=== PATIENT | female | born 1940 | race Caucasian/White ===

== ENCOUNTER 2016-05-27 15:46 | Emergency (ER) | payer MEDICARE ==
[~2016-05-27] VITALS: Ht 152.4 cm; Wt 88.0 kg
[2016-05-27 15:53] VITALS: BP 142/72; PULSE 77; RESP 16; TEMP 97.9; O2SAT 98
[2016-06-15] MEDS ORDERED: VALA500T PO (10:02)
[2016-06-15] MEDS ORDERED: AMLO2.5T PO (10:02)
[2016-06-15] MEDS ORDERED: VITA100064 PO (10:02)
[2016-06-15] MEDS ORDERED: FLUT1SPR5 EACH NARE (10:02)
[2016-06-15] MEDS ORDERED: AMBI5TAB PO (10:02)
== END 2016-05-27 20:13 | disposition left against medical advice (07) ==
LOC: PHED 15:46
DX: R10.9 Unspecified abdominal pain (principal)
CPT/HCPCS: 99281

== ENCOUNTER 2016-06-01 09:33 | Emergency (ER) | payer MEDICARE ==
[~2016-06-01] VITALS: Ht 152.4 cm; Wt 79.5 kg
[2016-06-01 09:36] VITALS: BP 171/80; PULSE 74; RESP 16; TEMP 97.8; O2SAT 97
[2016-06-01 10:42] LABS: AUTOMATED NEUTROPHIL # 3.4 TH/MM3 (1.8-7.7); BASOPHIL % 0.4 % (0.0-2.0); EOSINOPHIL # 0.2 TH/MM3 (0-0.4); EOSINOPHIL % 3.6 % (0.0-4.0); HEMATOCRIT 46.5 % (35.0-46.0); LYMPH % 36.5 % (9.0-44.0); LYMPHOCYTE # 2.5 TH/MM3 (1.0-4.8); MEAN CELL VOLUME 95.7 FL (80.0-100.0); MEAN CORPUSCULAR HEMOGLOBIN 33.2 PG (27.0-34.0); MEAN CORPUSCULAR HGB CONC 34.7 % (32.0-36.0); MONO % 8.4 % (0.0-8.0); NEUT % 51.1 % (16.0-70.0); PLATELET COUNT 99 TH/MM3 (150-450); RED BLOOD COUNT 4.86 MIL/MM3 (4.00-5.30); RED CELL DISTRIBUTION WIDTH 12.4 % (11.6-17.2); WHITE BLOOD COUNT 6.7 TH/MM3 (4.0-11.0)
[2016-06-01 10:45] LABS: HEMO FLAGS AUTO DIFF
[2016-06-01 10:48] LABS: BLOOD, URINE NEG (NEG); COMMENT (UR) CULT NOT INDICATED; CULTURE IF INDICATED CULT NOT INDICATED; GLUCOSE,URINE NEG (NEG); KETONE, URINE NEG (NEG); NITRITE,URINE NEG (NEG); PH, URINE 7.5 (5.0-8.5); URINE COLOR YELLOW (YELLW/STRAW)
[2016-06-01 11:15] LABS: PLATELET ESTIMATE SMEAR LOW (NORMAL); PLATELET MORPHOLOGY NORMAL (NORMAL); SCAN/DIFF AUTO DIFF CONFIRMED
[2016-06-01 11:20] LABS: ALKALINE PHOSPHATASE 95 U/L (45-117); TOTAL BILIRUBIN ADULT 1.9 MG/DL (0.2-1.0)
[2016-06-01 11:22] LABS: ALT (GPT) 54 U/L (10-53); ANION GAP 6 MEQ/L (5-15); AST (GOT) 31 U/L (15-37); BICARBONATE 26.8 MEQ/L (21.0-32.0); BLOOD UREA NITROGEN 18 MG/DL (7-18); CHLORIDE 106 MEQ/L (98-107); GLOMERULAR FILTRATION RATE 78 ML/MIN (>89); POTASSIUM 4.5 MEQ/L (3.5-5.1); SODIUM (NA) 139 MEQ/L (136-145)
[2016-06-01 11:38] VITALS: O2SAT 98
[2016-06-01] MEDS ORDERED: ATOR10TA15 PO (11:52)
[2016-06-01] MEDS ORDERED: METO25TA3 PO (11:52)
[2016-06-01] MEDS ORDERED: SODIUM CHLOR 0.9% 1000 ML INJ 1,000 ML IV ONE (12:15)
--- NOTE | 2016-06-01 12:24 | PD ---
HPI Chief Complaint: Abdominal Pain Time Seen by Provider: 11:51 Travel History International Travel<30 days: No Contact w/Intl Traveler<30days: No Traveled to known affect area: No History of Present Illness HPI This is a 75 year-old woman who presents to the emergency department complaining of 3 weeks of lower abdominal pain. States it feels similar to when she's had diverticulitis multiple times in the past. She is visiting from out of town. She took 10 days of Augmentin that her doctor given her in case she were to have diverticulitis flare while here. She is not really noticed any change in her symptoms. She still has occasional loose yellow stools. She otherwise has been feeling generally well. No fevers or chills. No nausea or vomiting. No urinary symptoms. Only abdominal surgical history is appendectomy and cholecystectomy. No other complaints. History Past Medical History Narrative Medical Hypertension Hyperlipidemia Influenza Vaccination: Yes : 3 Para: 3 Social History Alcohol Use: No Tobacco Use: No Allergies-Medications (Allergen,Severity, Reaction): Coded Allergies: No Known Allergies (Unverified , 06/01/16) Reported Meds & Prescriptions Reported Meds & Active Scripts Active Reported Atorvastatin (Atorvastatin Calcium) 10 Mg Tab 2.5 Mg PO EVERY OTHER DAY Metoprolol Tartrate 25 Mg Tab 25 Mg PO DAILY Review of Systems Except as stated in HPI: all other systems reviewed are Neg Physical Exam Narrative GENERAL: Well-appearing 75 old woman, no acute distress. SKIN: Warm and dry. HEAD: Atraumatic. Normocephalic. CARDIOVASCULAR: Regular rate and rhythm. No murmur appreciated. RESPIRATORY: No accessory muscle use. Clear to auscultation. Breath sounds equal bilaterally. GASTROINTESTINAL: Abdomen is obese, soft, with moderate lower abdominal tenderness to palpation. No rebound or guarding. MUSCULOSKELETAL: No obvious deformities. No clubbing. No cyanosis. No edema. NEUROLOGICAL: Awake and alert. No obvious cranial nerve deficits. Motor grossly within normal limits. Normal speech. PSYCHIATRIC: Appropriate mood and affect; insight and judgment normal. Data Data Last Documented VS Vital Signs Date Time Temp Pulse Resp B/P Pulse Ox O2 Delivery O2 Flow Rate FiO2 06/01/16 11:38 98 06/01/16 11:38 Room Air 06/01/16 09:36 97.8 74 16 171/80 Orders Complete Blood Count With Diff (06/01/16 09:51) Comprehensive Metabolic Panel (06/01/16 09:51) Urinalysis - C+S If Indicated (06/01/16 09:51) Iv Access Insert/Monitor (06/01/16 09:51) Oxygen Administration (06/01/16 09:51) Oximetry (06/01/16 09:51) Lipase (06/01/16 09:51) Ct Abd/Pel W Iv Contrast(Rout) (06/01/16 ) Sodium Chlor 0.9% 1000 Ml Inj (Ns 1000 M (06/01/16 12:15) Iohexol 350 Inj (Omnipaque 350 Inj) (06/01/16 13:40) Labs Laboratory Tests Test 06/01/16 06/01/16 10:00 10:10 Urine Color YELLOW Urine Turbidity CLEAR Urine pH 7.5 Urine Specific [place] 1.005 Urine Protein NEG mg/dL Urine Glucose (UA) NEG mg/dL Urine Ketones NEG mg/dL Urine Occult Blood NEG Urine Nitrite NEG Urine Bilirubin NEG Urine Urobilinogen LESS THAN 2.0 MG/DL Urine Leukocyte Esterase NEG Urine WBC LESS THAN 1 /hpf Microscopic Urinalysis Comment CULT NOT INDICATED White Blood Count 6.7 TH/MM3 Red Blood Count 4.86 MIL/MM3 Hemoglobin 16.1 GM/DL Hematocrit 46.5 % Mean Corpuscular Volume 95.7 FL Mean Corpuscular Hemoglobin 33.2 PG Mean Corpuscular Hemoglobin 34.7 % Concent Red Cell Distribution Width 12.4 % Platelet Count 99 TH/MM3 Mean Platelet Volume 9.0 FL Neutrophils (%) (Auto) 51.1 % Lymphocytes (%) (Auto) 36.5 % Monocytes (%) (Auto) 8.4 % Eosinophils (%) (Auto) 3.6 % Basophils (%) (Auto) 0.4 % Neutrophils # (Auto) 3.4 TH/MM3 Lymphocytes # (Auto) 2.5 TH/MM3 Monocytes # (Auto) 0.6 TH/MM3 Eosinophils # (Auto) 0.2 TH/MM3 Basophils # (Auto) 0.0 TH/MM3 CBC Comment AUTO DIFF Differential Comment AUTO DIFF CONFIRMED Platelet Estimate LOW Platelet Morphology Comment NORMAL Sodium Level 139 MEQ/L Potassium Level 4.5 MEQ/L Chloride Level 106 MEQ/L Carbon Dioxide Level 26.8 MEQ/L Anion Gap 6 MEQ/L Blood Urea Nitrogen 18 MG/DL Creatinine 0.73 MG/DL Estimat Glomerular Filtration 78 ML/MIN Rate Random Glucose 89 MG/DL Calcium Level 9.2 MG/DL Total Bilirubin 1.9 MG/DL Aspartate Amino Transf 31 U/L (AST/SGOT) Alanine Aminotransferase 54 U/L (ALT/SGPT) Alkaline Phosphatase 95 U/L Total Protein 7.0 GM/DL Albumin 4.1 GM/DL Lipase 150 U/L MDM Medical Decision Making Medical Screen Exam Complete: Yes Emergency Medical Condition: Yes Interpretation(s) LABS: CBC remarkable for mildly elevated H&H. Platelets 99. CMP mildly elevated total bili. Lipase normal. UA unremarkable. CT abdomen and pelvis: Suspected mild acute distal descending diverticulitis. Diffuse fatty infiltration of the liver with a focal area of differing density involving segment with some associated dilatation of bile duct. Likely relates to focal fatty sparing cannot completely exclude an infiltrating mass. At some point she will need an MRI. Mild biliary dilatation involving segment 8 of the liver as well as dilatation the common bile duct measuring 15 mm. Prior cholecystectomy. 2.2 cm left ovarian cyst. Splenomegaly. Differential Diagnosis Diverticulitis, abscess, mass, colitis, other Narrative Course Medical decision making INITIAL: 75 year-old woman presents to the emergency department complaining of lower abdominal discomfort and some stool changes suggestive of diverticulitis. This is not improved despite 10 days of Augmentin. Concern for abscess or complication. We'll check labs, CT, reassess. FINAL: 75 year-old woman, CT scan does suggest diverticulitis. I think is likely the cause of her symptoms. It also shows insulin findings involving the liver the biliary system. I suspect his asymmetric fatty infiltration. She's had some kind of dilation of the biliary stricture previously. She has a GI doctor that she follows with. They will follow up on these likely incidental findings and she gets home. Diagnosis Primary Impression: Acute diverticulitis Additional Instructions: Take Cipro and Flagyl as prescribed. Follow-up with her primary physician as soon as you returned home. Return to the emergency department for any worsening abdominal pain, bloody diarrhea, high fevers, or any other new or worsening symptoms. Med/Other Pt SpecificInfo: Prescription(s) given Scripts Metronidazole (Flagyl)500 Mg [id number] Mg PO TID 10 Days Ref 0 Prov:Adolfo Carmona MD 06/01/16 Ciprofloxacin (Cipro)500 Mg [id number] Mg PO BID 10 Days Prov:Adolfo Carmona MD 06/01/16 Disposition: 01 DISCHARGE HOME Condition: Stable Adolfo Carmona MD Jun 01, 2016 12:23
[2016-06-01] MEDS ORDERED: IOHEXOL 350 MG/ML 10 ML VIAL (for RAD DIAG) IV ONE (13:40)
--- NOTE | 2016-06-01 14:27 | RADRPT ---
EXAM DATE/TIME: 06/01/2016 13:33 [facility] COMPARISON: No previous studies available for comparison. INDICATIONS : Bilateral lower quadrant pain. IV CONTRAST: 90 cc Omnipaque 350 (iohexol) IV ORAL CONTRAST: No oral contrast ingested. RADIATION DOSE: 16.67 CTDIvol (mGy) MEDICAL HISTORY : Hypertension. SURGICAL HISTORY : Appendectomy. Cholecystectomy.Tubal ligation. ENCOUNTER: Initial ACUITY: 3 weeks PAIN SCALE: 7/10 LOCATION: Bilateral lower quadrant TECHNIQUE: Volumetric scanning of the abdomen and pelvis was performed. Using automated exposure control and ad justment of the mA and/or kV according to patient size, radiation dose was kept as low as reasonably achievable to obtain optimal diagnostic quality images. FINDINGS: LOWER LUNGS: The visualized lower lungs are clear. LIVER: The liver is diffusely low in attenuation. There is an approximate 8 cm curvilinear area of differing density within segment 8 of the liver. There is no displacement of vessels or contour irregularity t o the capsule. There is some associated mild biliary dilatation within this segment. No other biliary dilatation observed within the liver. The common bile that measures 15 mm in this patient is status post cholecystectomy. Portal vein is patent. SPLEEN: Spleen is enlarged measuring 13.6 cm in greatest dimension. No lesion appreciated. PANCREAS: Within normal limits. KIDNEYS: Normal in size and shape. There is no mass, stone or hydronephrosis. ADRENAL GLANDS: Within normal limits. VASCULAR: There is no aortic aneurysm. BOWEL/MESENTERY: There is mild stranding of the pericolonic fat adjacent to the distal descending colon. Multiple dive rticula are seen scattered throughout the colon but most abundant within the sigmoid region. No free air or free fluid. No dilatation. Small bowel and stomach are normal. ABDOMINAL WALL: Within normal limits. RETROPERITONEUM: There is no lymphadenopathy. BLADDER: No wall thickening or mass. REPRODUCTIVE: A 2.2 cm cyst is seen involving the left ovary. Uterus is unremarkable. INGUINAL: There is no lymphadenopathy or hernia. MUSCULOSKELETAL: Within normal limits for patient age. CONCLUSION: 1. Suspected mild acute distal descending diverticulitis. No obstruction, perforation, or abscess. 2. Diffuse fatty infiltration of the liver. There is a focal area of differing density involving segm ent 8 with some associated dilatation of the bile ducts. I feel this likely relates to focal fatty sp aring but I cannot completely exclude an infiltrating mass. At some point an MRI of the liver is need ed to further evaluate this area. 3. Mild biliary dilatation involving segment 8 of the liver as well as dilatation of the common bile duct measuring 15 mm. No obstructing mass or lesion is observed. This can be further assessed with MR CP if clinically needed. 4. Prior cholecystectomy. 5. 2.2 cm left ovarian cyst. 6. Splenomegaly. Anibal King Jr., MD on June 01, 2016 at 14:16 Board Certified Radiologist. This report was verified electronically.
[2016-06-01] MEDS ORDERED: CIPR-9 PO (14:51)
[2016-06-01] MEDS ORDERED: METR-1 PO (14:51)
[2016-06-15] MEDS ORDERED: VITA100064 PO (10:02)
[2016-06-15] MEDS ORDERED: AMLO2.5T PO (10:02)
[2016-06-15] MEDS ORDERED: FLUT1SPR5 EACH NARE (10:02)
[2016-06-15] MEDS ORDERED: AMBI5TAB PO (10:02)
[2016-06-15] MEDS ORDERED: VALA500T PO (10:02)
== END 2016-06-01 16:09 | disposition home or self-care (01) ==
LOC: NEPA 09:33
DX: K57.92 Diverticulitis of intestine, part unspecified, without perforation or abscess without bleeding (principal); I10 Essential (primary) hypertension; E78.5 Hyperlipidemia, unspecified
CPT/HCPCS: 74177; 80053; 81001; 83690; 85025; 96360; 99284; J7030; Q9967